=== PATIENT | female | born 1980 | race Caucasian/White ===

== ENCOUNTER 2020-11-08 16:10 | Emergency (ER) | payer OTHER ==
[~2020-11-08] VITALS: Ht 162.6 cm; Wt 77.6 kg
[2020-11-08 16:13] VITALS: BP 146/91
--- NOTE | 2020-11-08 16:16 | NUR ---
Patient given urine cup and ambulated to lobby
[2020-11-08 16:44] LABS: BASOPHILS # (AUTO) 0.1 K/uL (0.00-0.22); BASOPHILS % (AUTO) 0.8 % (0.0-2.0); EOSINOPHILS # (AUTO) 0.1 K/uL (0-0.4); EOSINOPHILS % (AUTO) 0.7 % (0.0-4.0); HEMATOCRIT 39.2 % (36-48); HEMOGLOBIN 13.1 g/dL (12.0-16.0); LYMPHOCYTES # (AUTO) 1.6 K/uL (2.5-16.5); LYMPHOCYTES % (AUTO) 19.9 % (20.5-51.1); MEAN CORPUSCULAR HEMOGLOBIN 30 pg (27-31); MEAN CORPUSCULAR HGB CONC 33 g/dL (33-37); MEAN CORPUSCULAR VOLUME 88.7 fL (80-94); MONOCYTES # (AUTO) 0.6 K/uL (0.8-1.0); NEUTROPHILS # (AUTO) 5.9 K/uL (1.8-7.7); NEUTROPHILS % (AUTO) 71.6 % (42.2-75.2); PLATELET COUNT (AUTO) 395 K/uL (140-450); RED BLOOD CELL COUNT(AUTO) 4.42 MIL/uL (4.20-5.40); RED CELL DISTRIBUTION WIDTH 15.5 % (11.6-13.7); WHITE BLOOD COUNT (AUTO) 8.2 K/uL (4.8-10.8)
--- NOTE | 2020-11-08 16:52 | NUR ---
40 y/o female from home c/o vaginal bleeding since this morning, states possibly 7 wks . LMP /. Denies abd pain/pressure. States moderate amount of bright red in color bleeding. Skin warm, dry, intact. VSS
[2020-11-08 16:55] LABS: APPEARANCE,URINE CLEAR (CLEAR); BILIRUBIN,URINE NEGATIVE (NEGATIVE); BLOOD, URINE 3+ (NEGATIVE); COLOR,URINE YELLOW (YELLOW); LEUKOCYTE ESTERASE ,URINE NEGATIVE (NEGATIVE); NITRITE, URINE NEGATIVE (NEGATIVE); PH,URINE 6.5 (5.0-9.0); UGLUCOSE NEGATIVE (NEGATIVE)
[2020-11-08 16:58] LABS: ANION GAP 7.8 (8-16); CARBON DIOXIDE 29.1 mmol/L (21-32); CREATININE 0.8 mg/dL (0.6-1.3); POTASSIUM 3.9 mmol/L (3.5-5.1)
[2020-11-08 17:07] LABS: RBC,URINE 20-50 /HPF (0-5); WBC,URINE 0-5 /HPF (0-5)
[2020-11-08 18:26] VITALS: BP 146/91
--- NOTE | 2020-11-08 18:26 | NUR ---
Patient discharged with v/s stable. Written and verbal after care instructions given and explained. Patient verbalized understanding. Ambulatory with steady gait. All questions addressed prior to discharge. Advised to follow up with PMD.
== END 2020-11-08 18:26 | disposition home or self-care (01) ==
LOC: MED 16:10
DX: O46.8X1 Other antepartum hemorrhage, first trimester (principal); Z3A.01 Less than 8 weeks gestation of pregnancy
CPT/HCPCS: 36415; 76801; 80048; 81001; 81025; 84702; 85025; 86900; 86901; 99284

== ENCOUNTER 2020-11-26 14:33 | Emergency (ER) | payer OTHER ==
[~2020-11-26] VITALS: Ht 165.1 cm; Wt 77.1 kg
[2020-11-26 15:01] VITALS: BP 149/89
--- NOTE | 2020-11-26 15:17 | NUR ---
40 Y/O FEMALE CC: VAGINAL BLEEDING. M1; LMP 09/19. PT WAS SPOTTING WITH LIGHT PINK DISCHARGE FOR ABOUT A WEEK, THIS MORNING FELT HEAVIER FLOW AND MORE PROMINENT MICHEAL BLOOD EXIT HER VAGINA. STATES SHE IS PASSING SMALL CLOTS AND IS HAVING MILD CRAMPING. PATIENT HAS CARE, BUT HAS NOT HEARD HEART TONES YET. CARE SCHEDULED FOR 12/03/20. NO PMH NKA
--- NOTE | 2020-11-26 15:45 | NUR ---
US AT BEDSIDE, LAB AT BEDSIDE DRAWING LABS
[2020-11-26 16:02] LABS: BASOPHILS # (AUTO) 0.1 K/uL (0.00-0.22); BASOPHILS % (AUTO) 0.8 % (0.0-2.0); EOSINOPHILS # (AUTO) 0.1 K/uL (0-0.4); EOSINOPHILS % (AUTO) 1.6 % (0.0-4.0); HEMATOCRIT 39.4 % (36-48); LYMPHOCYTES # (AUTO) 1.9 K/uL (2.5-16.5); LYMPHOCYTES % (AUTO) 23.4 % (20.5-51.1); MEAN CORPUSCULAR HEMOGLOBIN 29 pg (27-31); MEAN CORPUSCULAR HGB CONC 33 g/dL (33-37); MEAN CORPUSCULAR VOLUME 88.7 fL (80-94); MONOCYTES # (AUTO) 0.7 K/uL (0.8-1.0); MONOCYTES % (AUTO) 8.1 % (1.7-9.3); NEUTROPHILS # (AUTO) 5.3 K/uL (1.8-7.7); NEUTROPHILS % (AUTO) 66.1 % (42.2-75.2); PLATELET COUNT (AUTO) 412 K/uL (140-450); RED BLOOD CELL COUNT(AUTO) 4.44 MIL/uL (4.20-5.40); RED CELL DISTRIBUTION WIDTH 15.3 % (11.6-13.7); WHITE BLOOD COUNT (AUTO) 8.1 K/uL (4.8-10.8)
[2020-11-26 16:16] LABS: APPEARANCE,URINE CLOUDY (CLEAR); BILIRUBIN,URINE NEGATIVE (NEGATIVE); BLOOD, URINE 3+ (NEGATIVE); COLOR,URINE RED (YELLOW); LEUKOCYTE ESTERASE ,URINE TRACE (NEGATIVE); NITRITE, URINE POSITIVE (NEGATIVE); PH,URINE 6.5 (5.0-9.0); UGLUCOSE NEGATIVE (NEGATIVE)
[2020-11-26 16:16] LABS: ALBUMIN 3.7 g/dL (3.4-5.0); CARBON DIOXIDE 28.3 mmol/L (21-32); CREATININE 0.7 mg/dL (0.6-1.3); TOTAL BILIRUBIN 0.3 mg/dL (0.0-1.0)
[2020-11-26 16:21] LABS: POTASSIUM 4.3 mmol/L (3.5-5.1)
[2020-11-26 17:39] VITALS: BP 149/89
[2020-11-26 17:53] LABS: RBC,URINE TOO NUMEROUS TO COUN /HPF (0-5)
[2020-11-26 17:57] LABS: WBC,URINE 0-5 /HPF (0-5)
== END 2020-11-26 17:39 | disposition home or self-care (01) ==
LOC: MED 14:33
DX: O03.9 Complete or unspecified spontaneous abortion without complication (principal); Z98.890 Other specified postprocedural states
CPT/HCPCS: 36415; 76801; 80053; 81001; 81025; 84702; 85025; 86900; 86901; 99284

== ENCOUNTER 2021-09-12 20:12 | Emergency (ER) | payer OTHER ==
[~2021-09-12] VITALS: Ht 165.1 cm; Wt 83.0 kg
[2021-09-12 20:17] VITALS: BP 162/103
--- NOTE | 2021-09-12 20:23 | NUR ---
PT AMBULATED TO BED #8
--- NOTE | 2021-09-12 22:00 | NUR ---
PATIENT STATES SHE HAS VAGINAL BLEEDING FOR 1 DAY. STATES SHE IS NOT ANY ANY PAIN OR DISCOMFORT. HAS TAKEN HOME TESTS AND HAVE TESTED POSITIVE BUT IS UNSURE OF STATUS. PATIENT IN NO APPARENT ACUTE DISTRESS. DENIES ANY SOB, N/V OR OTHER SYMPTOMS. WILL CONTINUE TO MONITOR. PMH: NONE
[2021-09-13 01:50] VITALS: BP 189/99
== END 2021-09-13 01:50 | disposition home or self-care (01) ==
LOC: MED 20:12
DX: N93.9 Abnormal uterine and vaginal bleeding, unspecified (principal)
CPT/HCPCS: 36415; 76817; 81002; 81025; 84702; 86886; 86900; 86901; 99284; Q0092